=== PATIENT | female | born 1985 | race Caucasian/White ===

== ENCOUNTER → 2018-02-26 | Emergency (ER) | payer OTHER ==
[~2018-02-26] VITALS: Ht 167.6 cm; Wt 59.4 kg
[~2018-02-26] MED LIST: KETO10TA2 PO
== END | disposition home or self-care (01) ==
LOC: ER 22:56
DX: N83.291 Other ovarian cyst, right side (principal); R10.2 Pelvic and perineal pain

== ENCOUNTER 2019-08-14 11:45 | Emergency (ER) | payer OTHER ==
[~2019-08-14] VITALS: Ht 167.6 cm; Wt 61.7 kg
== END 2019-08-14 16:20 | disposition home or self-care (01) ==
LOC: ER 11:45
DX: N30.80 Other cystitis without hematuria (principal)